=== PATIENT | male | born 1975 | race Caucasian/White ===

== ENCOUNTER 2016-10-06 10:15 | Emergency (ER) | payer SELFPAY ==
--- NOTE | 2016-10-06 10:27 | EDM.PDOC ---
ED HPI GENERAL MEDICAL PROBLEM - General Chief Complaint: ENT Problem Stated Complaint: MOUTH PAIN Time Seen by Provider: 10/06/16 10:20 Source of Information: Reports: Patient History Limitations: Reports: No Limitations - History of Present Illness INITIAL COMMENTS - FREE TEXT/NARRATIVE: Patient has had difficulty with rotting teeth, abscesses, etc for many years. He states he has an appointment October 14, for removal of problematic teeth. Some swelling. Asking for antibiotic and pain medication. No other complaints. 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 Onset: Gradual Duration: Chronic Quality: Reports: Ache, Pressure Severity: Moderate Improves with: Reports: None Worsens with: Reports: Eating - Related Data Allergies Allergy/AdvReac Type Severity Reaction Status Date / Time acetaminophen [From Vicodin] Allergy Vomiting Verified 10/06/16 10:25 hydrocodone [From Vicodin] Allergy Vomiting Verified 10/06/16 10:25 Home Meds: Home Meds . [No Known Home Meds] 10/06/16 [History] ED ROS ENT - Review of Systems Review Of Systems: See Below Constitutional: Reports: No Symptoms HEENT: Reports: Other (teeth pain) Respiratory: Reports: No Symptoms Cardiovascular: Reports: No Symptoms Endocrine: Reports: No Symptoms GI/Abdominal: Reports: No Symptoms : Reports: No Symptoms Musculoskeletal: Reports: No Symptoms Skin: Reports: No Symptoms Neurological: Reports: No Symptoms Psychiatric: Reports: No Symptoms Hematologic/Lymphatic: Reports: No Symptoms Immunologic: Reports: No Symptoms ED EXAM, ENT - Physical Exam Exam: See Below Text/Narrative:: Multiple teeth are in varying stages of decay, some are decayed to the gum line Exam Limited By: No Limitations General Appearance: Alert, WD/WN, Mild Distress Eye Exam: Bilateral Eye: EOMI, PERRL Mouth/Throat: Dental Pain, Dental Tenderness, Gum Swelling. No: Normal Teeth Head: Atraumatic, Normocephalic Neck: Normal Inspection Respiratory/Chest: No Respiratory Distress, Lungs Clear, Normal Breath Sounds, No Accessory Muscle Use, Chest Non-Tender Cardiovascular: Normal Peripheral Pulses, Regular Rate, Rhythm GI/Abdominal: Normal Bowel Sounds, Soft, Non-Tender Back: Normal Inspection Extremities: Normal Inspection, Normal Capillary Refill Neurological: Alert, Oriented, CN II-XII Intact, Normal Cognition, Normal Reflexes, No Motor/Sensory Deficits Psychiatric: Normal Affect, Normal Mood Lymphatic: No Adenopathy Departure - Departure Time of Disposition: 10:50 Disposition: Home, Self-Care 01 Condition: Good Clinical Impression: Dental caries extending into dentin - Discharge Information Instructions: Tooth Injuries, [id number] Additional Instructions: Make sure to take all of the antibiotics you have been given and make sure to keep your dental appointment in [place] for your extractions. If you have any questions or concerns please call us You should not drive while you are taking the pain medications - Problem List & Annotations (1) Dental caries extending into dentin Status: Acute Priority: Low - Problem List Review Problem List Initiated/Reviewed/Updated: Yes - Assessment/Plan Assessment:: Dental cavities Plan: Make sure to take all of the antibiotics you have been given and make sure to keep your dental appointment in [place] for your extractions. Take pain medications as needed If you have any questions or concerns please call us You should not drive while you are taking the pain medications
[2016-10-06 10:29] VITALS: BP 174/99
[2016-10-06] MEDS ORDERED: Acetaminophen/oxyCODONE 325-5 MG Tab PO ONE (10:32)
[2016-10-06] MEDS ORDERED: LORazepam 2 MG/ML SDV IVPUSH ONE (10:56)
== END 2016-10-06 10:50 | disposition home or self-care (01) ==
LOC: VM.ED 10:15
DX: K02.9 Dental caries, unspecified (principal); Z88.5 Allergy status to narcotic agent
CPT/HCPCS: 99282; A9270; 99283-GF